=== PATIENT | female | born 2000 | race Caucasian/White ===

== ENCOUNTER 2023-07-06 06:04 | Inpatient (IN) | payer MEDICAID ==
[~2023-07-06] VITALS: Ht 157.5 cm; Wt 67.0 kg
[2023-07-06] VITALS (7 sets, daily range): BP systolic 94–139; BP diastolic 56–82; PULSE 130–146; RESP 20–26; TEMP 98.2–98.6; O2SAT 94–98
[2023-07-06] MEDS: methylPREDNISolone SOD SUCC 125 MG/2 ML VL IV ONE (06:52)
[2023-07-06 07:08] LABS: Hemoglobin 14.1 g/dL (12.2-16.2); Mean Corpuscular Hemoglobin 29.7 pg (28.0-32.0); Mean Corpuscular Hgb Conc. 32.8 g/dL (32.0-36.0); Mean Corpuscular Volume 90.4 fL (80.0-100.0); Red Blood Cells 4.76 10^6/uL (4.0-5.20); Red Cell Distribution Width 13.6 % (11.8-14.3)
[2023-07-06 07:20] LABS: Band Neutrophils % (manual) 0; Basophils % (manual) 0 (0.0-2.0); Blast Cells 0; Chloride 106 mmol/L (98-107); Metamyelocytes % 0; Myelocytes % 0; Promyelocytes % 0; Reactive Lymphocytes 0; Sodium 139 mmol/L (136-145)
[2023-07-06 07:21] LABS: Anion Gap 8 (5-15); Calcium 9.9 mg/dL (8.7-10.4); Carbon Dioxide 25 mmol/L (20-30)
[2023-07-06 07:26] LABS: Blood Urea Nitrogen 10 mg/dL (9-23); Glucose 92 mg/dL (74-106)
[2023-07-06] MEDS: ALBUTEROL SULF 2.5 MG/0.5ML(0.5%) NEB SOLN NEB ONE ×2 (07:26→07:58)
[2023-07-06] MEDS: IPRATROPIUM BROM 0.5 MG/2.5ML INH SOL NEB ONE (07:26)
[2023-07-06] MEDS: LORazepam 2MG/ML-1ML VIAL IV ONE (09:05)
[2023-07-06 09:24] LABS: Eosinophils % (manual) 26 (0-7); Lymphocytes % (manual) 13 (10.0-50.0); Monocytes % (manual) 7 (0-12); Platelet Estimate Adequate
[2023-07-06] MEDS ORDERED: AMOX500C2 PO (09:29)
[2023-07-06] MEDS ORDERED: MONT-8 PO (09:29)
[2023-07-06] MEDS ORDERED: ALBU108A5 INH (09:29)
[2023-07-06] MEDS ORDERED: CHOL1CAP21 PO (09:29)
[2023-07-06] MEDS ORDERED: NITROGLYCERIN 0.4 MG SL TAB SL PRN (09:30)
[2023-07-06] MEDS ORDERED: PATIENTS OWN MEDICATION (Cholecalciferol (Vitamin D3) 1 CAP) PO SCH (09:30)
[2023-07-06] MEDS ORDERED: MORPHINE SULFATE INJ 2 MG/ml SYRG IV PRN (09:30)
[2023-07-06] MEDS: cefTRIAXone 1GM/50ML D5W 50 ML IV ONE (09:30)
[2023-07-06] MEDS ORDERED: ALBUTEROL SULF 2.5 MG/0.5ML(0.5%) NEB SOLN NEB PRN (09:30)
[2023-07-06] MEDS: AZITHROMYCIN 500MG/ 250ML 250 ML IV ONE (09:30)
[2023-07-06] MEDS ORDERED: ACETAMINOPHEN 325 MG TAB PO PRN (09:30)
[2023-07-06] MEDS ORDERED: ERGOCALCIFEROL 50,000 UNIT(1.25MG) CAP PO SCH (09:45)
[2023-07-06] MEDS: AZITHROMYCIN 500MG/ 250ML 250 ML IV SCH (10:00)
[2023-07-06] MEDS: IPRATROPIUM BROM 0.5 MG/2.5ML INH SOL NEB SCH (10:07)
[2023-07-06] MEDS: LEVALBUTEROL HCL 1.25 MG/3 ML NEB NEB SCH (10:07)
[2023-07-06] MEDS: SODIUM CHLORIDE 0.9% 1,000 ML IV SCH (10:23)
[2023-07-06] MEDS: methylPREDNISolone SOD SUCC 40 MG/ML VL IV SCH (10:24)
[2023-07-06] MEDS: MONTELUKAST SODIUM 10 MG TAB PO SCH (10:24)
[2023-07-06] MEDS ORDERED: LEVALBUTEROL HCL 1.25 MG/3 ML NEB NEB SCH (12:00)
[2023-07-06 14:29] LABS: Urine Bacteria FEW /hpf (None Seen); Urine Blood Negative /uL (Negative); Urine Clarity Clear (Clear); Urine Color Light-Yellow (Yellow); Urine Protein, UAD Negative (Negative); Urine Specific Gravity 1.008 (1.001-1.035); Urine Urobilinogen Normal (Negative); Urine WBC 5 /hpf (0 - 5); Urine pH 6.5 (5.0-9.0)
[2023-07-07] MEDS ORDERED: cefTRIAXone 1GM/50ML D5W 50 ML IV SCH (09:00)
== END 2023-07-06 15:02 | disposition left against medical advice (07) | DRG 141 ==
LOC: ER 06:04 → TELE 09:28
PROVIDERS: ADMIT Nurse Practitioner Family; ATTEND Nurse Practitioner Family
DX: J45.901 Unspecified asthma with (acute) exacerbation (principal); Z53.29 Procedure and treatment not carried out because of patient's decision for other reasons; J98.4 Other disorders of lung
CPT/HCPCS: 36415; 71045; 80048; 81001; 84484; 85007; 85027; 94640; 94644; 99291; G0378